=== PATIENT | female | born 1995 | race Caucasian/White ===

== ENCOUNTER 2024-06-26 14:48 | Outpatient (AMB) | payer OTHER, MEDICAID, SELFPAY ==
--- NOTE | 2024-06-26 14:55 | MHC.OFFVIS ---
Vital Signs 06/26/24 15:06 BMI Reason not done Patient refused/unable Pulse 88 Pulse Source Pulse Oximeter Pulse Oximetry (%) 94 Oxygen Delivery Method Nasal Cannula Oxygen Flow Rate 1 Intake Visit Reasons: copd Allergies nitrofurantoin [From Macrobid] Allergy (Intermediate, Verified 06/26/24 14:58) Rash HPI Comments Details: The patient is here for pulmonary evaluation. The patient is a 28 year woman with a known history of severe congenital scoliosis, quadriplegia, and chronic respiratory failure on BiPAP along with oxygen supplementation. Typically she uses a portable oxygen concentrator when she is out of the house on 1 L pulse. She has a concentrator at home that she gets through [employer]. She also has a BiPAP that she gets through [facility] will request a download at this time. The patient does get supplies readily from [employer] without any issues. In addition to that she has a cough assist device that she uses daily and I believe that is [employer]. The patient has been using Symbicort once or twice a day with good effect. She also has a nebulizer that she uses as needed. Typically she does have allergies and during the springtime she may start taking antihistamines and use her inhaler more. The last time she has prednisone was last year around when she got a prescription sent. As far as imaging studies she had a CT scan of the abdomen that demonstrated a good amount of her lungs back in 2022 which I personally reviewed. At that time she had that CT scan for kidney stones. It appeared that her lung parenchyma is okay although she did have some atelectasis the bases and again the significant scoliosis. As far as blood work the patient does have significant eosinophilia and likely that represents her ongoing allergy symptoms that she gets the springtime. Will continue to moderate to her closely especially as she takes Symbicort. In the meantime we did talk about deep breathing exercises. I did provide her an incentive spirometer. We talked about the importance of strengthening her respiratory muscles chest is with singing or an air instrument. [facility] Medical History (Updated 06/26/24 @ 17:57 by Evaristo Lam MD) Chronic incomplete quadriplegia Asthma Chronic restrictive lung disease Acute on chronic respiratory failure with hypoxia and hypercapnia Review of Systems Const Denies fever(s) Eyes Reports no additional complaints ENT Reports dysphagia and Denies hoarseness Card Reports no additional complaints Resp Reports cough and Denies wheezing GI Reports dysphagia Musc Reports as per HPI Skin/Breast Denies rash Neuro Reports as per HPI Alexis/Lymph Denies easy bleeding and Denies lymphadenopathy Aller/Immun Denies wheezing Physical Exam Vital Signs: Last Vital Signs Pulse 88 06/26/24 15:06 Pulse Ox 94 06/26/24 15:06 Oxygen Delivery Method Nasal Cannula 06/26/24 15:06 Oxygen Flow Rate 1 06/26/24 15:06 Const General: comfortable Limitations: physical limitations and wheelchair HEENT Head: Yes normocephalic Neck Neck: No tracheal deviation Chest Chest palpation & inspection: normal inspection of the chest Resp Effort & Inspection: normal respiratory effort Auscultation: diminished lung sounds Cardio Palpation: normal PMI Rate: regular rate Heart sounds: S1 normal heart sound present and S2 normal heart sound present GI Inspection: Yes G-tube present Palpation (GI): Soft to palpation Skin General skin exam: no rashes or lesions noted Extrem General: No cyanosis Results Reviewed Results Reviewed: personally reviewd CT ABD with lung windows showing atelectasis Assessment & Plan Assessment & Plan (1) Acute on chronic respiratory failure with hypoxia and hypercapnia: Code(s): J96.21 - Acute and chronic respiratory failure with hypoxia; J96.22 - Acute and chronic respiratory failure with hypercapnia Category: Medical (2) Chronic restrictive lung disease: Code(s): J98.4 - Other disorders of lung Category: Medical (3) Asthma: Code(s): J45.909 - Unspecified asthma, uncomplicated Category: Medical Qualifiers: Asthma severity: moderate Asthma persistence: persistent Asthma complication type: uncomplicated Qualified Code(s): J45.40 - Moderate persistent asthma, uncomplicated (4) Chronic incomplete quadriplegia: Code(s): G82.50 - Quadriplegia, unspecified Category: Medical Plan continue BIPAP, will request doenload continue oxygen: POC for portability and concentrator at the home cough assist device daily symbicort AUGUSTIN, has nebulizer ISS provided for deep breathing exercises anti histamines as needed consider singulair F/U 6-8 months Medications: New albuterol sulfate 2.5 mg (3 mL) inhalation Q6H PRN 180 mL 11RF shortness of breath or wheezing 30 days Coding Level of Care Code New Pt Level 5 (32284) Diagnoses Acute on chronic respiratory failure with hypoxia and hypercapnia J96.21; J96.22 Chronic restrictive lung disease J98.4 Moderate persistent asthma without complication J45.40 Asthma severity: moderate Asthma persistence: persistent Asthma complication type: uncomplicated Chronic incomplete quadriplegia G82.50 Time Spent (min) 45
[2024-06-26 15:06] VITALS: PULSE 88; O2SAT 94
--- OUTSIDE RECORDS SUMMARY | 2024-06-26 17:02 | XMS_ITS | Encounter Summary ---
Author Organization [facility] Address [address] [place] [address] Care Team Providers Care String Laster Name Role Phone Yumiko Hallman DO Primary Care Provider [phone] Reason for Visit * Reason Comments Medication Refill Encounter Details Date Type Department Care Team (Late st Contact Info) Description 12/05/[address] [facility] Gastroenterology, [address] [address] Carmen Rojas MD [address] [place] [id number] Gastroesophageal reflux disease; Gastrostomy tube dependent Social History Tobacco Use Types Packs/Day Years Used Date Smoking Tobacco: Never Smokeless Tobacco: Never Alcohol Use Standard Drinks/Week Comments Yes 0 (1 standard drink = 0.6 oz pur e alcohol) Comments No Sex and Gender Information Value Date Recorded Sex Assigned at Not on file Legal Sex Female 3:56 PM EST Gender Identity Female 01/19/2020 2:28 PM EDT Sexual Orientation Not on file documented as of this encounter Miscellaneous Notes * Telephone Encounter - Karen Ross RN - 12/05/2020 3:28 PM EDT Spoke with mom and Xiao has a new GI Adult. And mom reports no longer on the Senna Please refuse the senna. documented in this encounter Plan of Treatment Not on file documented as of this encounter Visit Diagnoses Diagnosis Gastroesophageal reflux disease Esophageal reflux Gastrostomy tube dependent documented in this encounter Care Teams String Laster Relationship Specialty Start Date End Date Yumiko Hallman DO [address] [place] [address] PCP - General General Pediatrics 06/16/19 documented as of this encounter
--- OUTSIDE RECORDS SUMMARY | 2024-06-26 17:02 | XMS_ITS | Clinical Summary ---
Author Organization [facility] '[facility] Address [address] [place] [address] Care Team Providers Care Appraiser [employer] Name Role Phone Yumiko Hallman Primary Care Provider [phone] Source Comments Please note that some or all of the patient's information could have additional privacy protections. State laws allow health care providers to render certain types of treatment to minors without parental consent. Please do not assume that this information can be shared solely by obtaining just the consent of the patient's parent/guardian. Please determine if all or part of the patient's care was rendered without parent/guardian involvement. And, if so, obtain the minor's consent prior to disclosure.[facility] Allergies Active Allergy Reactions Criticality Noted Date Comments Nitrofurantoin Monohyd/M-Cryst 06/[address] 7.5 mg onto the skin 2 (two) times daily Active methenamine (HIPREX) 1 gram tablet 0 Active aspirin 81 MG EC tablet Take by mouth daily Active albuterol (ACCUNEB) 0.63 mg/3 mL nebulizer solution Take 1 ampule by nebulization every 6 (six) hours as needed for Wheezing Active polyethylene glycol (MIRALAX) 17 gram packet Take by mouth daily Active Active Problems Problem Noted Date Diagnosed Date Other constipation 11/13/2019 Neuromuscular scoliosis of thoracolumbar region 06/19/2019 Extreme prematurity, 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 Not on file 01/15/2023 Share good news about positive changes: Not on f ile 01/15/2023 Comments No Sex and Gender Information Value Date Recorded Sex Assigned at Not on file Legal Sex Female 3:56 PM EST Gender Identity Female 01/19/2020 2:28 PM EDT Sexual Orientation Not on file Last Filed Vital Signs Vital Sign Reading Time Taken Comments Blood Pressure 92/67 02/19/2020 2:28 PM EDT Pulse 85 01/22/2020 3:25 PM EDT Temperature - - Respiratory Rate - - Oxygen Saturation 93% 01/22/2020 3:25 PM EDT Inhaled Oxygen Concentration - - Weight 29 kg (64 lb) 02/19/2020 2:28 PM EDT Height 94 cm (3' 1.01 ) 02/19/2020 2:28 PM EDT Body Mass Index 32.85 02/19/2020 2:28 PM EDT Plan of Treatment Health Maintenance Due Date Last Done Comments DTaP/TDAP/TD VACCINES (1 - Tdap) 2000 ADOLESCENT HIV SCREENING 2006 COVID-19 Vaccine (2023-2 5 season) 2024 INFLUENZA (#1) 2024 NIRSEVIMAB VACCINES UNDER 8 MONTHS Aged Out No longer eligible based on patient's age to complete this topic Insurance [facility] MEDICAID Care Teams Appraiser Oil And Water Relationship Specialty Start Date End Date Yumiko Hallman DO [facility] [place] [address] PCP - General General Pediatrics 06/16/19
--- OUTSIDE RECORDS SUMMARY | 2024-06-26 17:02 | XMS_ITS | Encounter Summary ---
Author Organization [facility] Address [address] [place] [address] Care Team Providers Care Swatch Checker Name Role Phone Yumiko Hallman DO Primary Care Provider [phone] Reason for Visit * Reason Comments Medication Refill Encounter Details Date Type Department Care Team (Late st Contact Info) Description 02/14/2020 Refill [facility] Gastroenterology, [address] [place] [address] Carmen Rojas MD [address] [place] [phone] Gastroesophageal reflux disease Social History Tobacco Use Types Packs/Day Years [...] encounter Miscellaneous Notes * Telephone Encounter - Giovanna Smith RN - 02/14/2020 2:08 PM EDT Dose correct Last seen 01-22-20 - rx sent was only 10 day supply Next appt 02-19-20 documented in this encounter Plan of Treatment Not on file documented as of this encounter Visit Diagnoses Diagnosis Gastroesophageal reflux disease Esophageal reflux documented in this encounter Care Teams Swatch Checker Relationship Specialty Start Date End Date Yumiko Hallman DO NPI: [id number] [place] [address] PCP - General General Pediatrics 06/16/19 documented as of this encounter
--- OUTSIDE RECORDS SUMMARY | 2024-06-26 17:03 | XMS_ITS | Encounter Summary ---
Author Organization [facility] Address [address] [place] [address] Care Team Providers Care New Accounts Representative Name Role Phone Yumiko Hallman DO Primary Care Provider [phone] Reason for Visit * Reason Comments Medication Refill Encounter Details Date Type Department Care Team (Late st Contact Info) Description 07/27/2020 Refill [facility] Gastroenterology[address] [address] Carmen Rojas MD [address] [place] [address] Gastrointestinal hemorrhage associated with gastritis, unspecified gastritis type Social History Tobacco Use Types Packs/Day Years [...] Telephone Encounter - Karen Ross RN - 07/29/2020 10:13 AM EDT Last visit: 05/13/20 Next visit: no appt booked as of now. Weight : 29 kg Allergies: reviewed Current dose: Continue on pepcid 20 mg twice a day documented in this encounter Plan of Treatment Not on file documented as of this encounter Visit Diagnoses Diagnosis Gastrointestinal hemorrhage associated with gastritis, unspecified gastritis type documented in this encounter Care Teams New Accounts Representative Relationship Specialty Start Date End Date Yumiko Hallman DO [facility] [place] [address] PCP - General General Pediatrics 06/16/19 documented as of this encounter
--- OUTSIDE RECORDS SUMMARY | 2024-06-26 17:03 | XMS_ITS | Encounter Summary ---
Author Organization [facility] Address [address] [place] [address] Care Team Providers Care Aircraft Structure Mechanic Name Role Phone Yumiko Hallman Primary Care Provider [phone] Reason for Visit * Reason Comments Medication Refill Encounter Details Date Type Department Care Team (Late st Contact Info) Description 08/23/2020 Refill [facility] Gastroenterology[address] [address] Jennifer Moon MD [address] [place] [address] Gastrointestinal hemorrhage associated with gastritis, unspecified gastritis [...] Telephone Encounter - Karen Ross RN - 08/23/2020 11:06 AM EDT Last visit: 05/13/20 Next visit: no appt booked at this time. Weight: 29 kg Allergies:reviewed Current dose: Continue on pepcid 20 mg twice a day documented in this encounter Plan of Treatment Not on file documented as of this encounter Visit Diagnoses Diagnosis Gastrointestinal hemorrhage associated with gastritis, unspecified gastritis type documented in this encounter Care Teams Aircraft Structure Mechanic Relationship Specialty Start Date End Date Yumiko Hallman DO [address] [place] [address] PCP - General General Pediatrics 06/16/19 documented as of this encounter
== END 2024-06-26 16:27 | disposition home or self-care (01) ==
PROVIDERS: PCP Pediatrics; Visit Provider Hospitalist
DX: J96.21 Acute and chronic respiratory failure with hypoxia (principal); J96.22 Acute and chronic respiratory failure with hypercapnia; J98.4 Other disorders of lung; J45.40 Moderate persistent asthma, uncomplicated; G82.50 Quadriplegia, unspecified
CPT/HCPCS: 99204

== ENCOUNTER → 2024-06-26 14:48 | Outpatient (BNVA) | payer OTHER, MEDICAID, SELFPAY | PROVIDERS: PCP Pediatrics; Visit Provider Hospitalist ==